=== PATIENT | male | born 1950 | race Caucasian/White ===

== ENCOUNTER 2016-06-20 10:32 | Outpatient (CLI) | payer OTHER ==
--- NOTE | 2016-06-21 17:20 | DIAGNOSTIC IMAGING REPORT ---
REFERRING PHYSICIAN/PROVIDER: CONSULTING 4 H YOU[employer] DEVELOPMENT SPECIALIST: Varinder Yeung MD INDICATION: DILATED AORTIC ROOT Procedure: A two-dimensional transthoracic echocardiogram with color flow and Doppler was performed. The study quality was technically adequate. The patient was in normal sinus rhythm during the exam. Left Ventricle: The left ventricle is normal in size. There is mild concentric left ventricular hypertrophy. There is no ventricular septal defect visualized. Left ventricular systolic function is normal without focal wall motion abnormalities. The ejection fraction is estimated to be 55-60%. Assessment of diastolic parameters indicates a relaxation abnormality of the left ventricle, consistent with normal filling pressures. Right Ventricle: The right ventricle is normal in size and function. Atria: The left atrial size is normal. The right atrium grossly appears normal in size. The interatrial septum is intact with no evidence for an atrial septal defect. Mitral Valve: The mitral valve leaflets appear borderline thickened, but open well. There is mild mitral regurgitation. Aortic Valve: The aortic valve is trileaflet. The aortic valve opens well. There is mild aortic regurgitation. Tricuspid Valve: The tricuspid valve leaflets are thin and pliable. There is a trace or physiologic amount of tricuspid regurgitation. Pulmonary artery pressures cannot be estimated because of the lack of a measurable TR jet velocity. Pulmonic Valve: The pulmonic valve is not well visualized. The pulmonic valve is not well seen, but is grossly normal. There is a trace or physiologic amount of pulmonic regurgitation. Great Vessels: The aortic root is mildly dilated. It measures around 4.3 cm. The ascending aorta is mildly enlarged. It measures around 3.7 cm. Pericardium/ Pleura The pericardium appears normal. IMPRESSION: There is mild concentric left ventricular hypertrophy. Left ventricular systolic function is normal without focal wall motion abnormalities. The ejection fraction is estimated to be 55-60%. Assessment of diastolic parameters indicates a relaxation abnormality of the left ventricle, consistent with normal filling pressures. The right ventricle is normal in size and function. Pulmonary artery pressures cannot be estimated because of the lack of a measurable TR jet velocity. The left atrial size is normal. There is mild mitral regurgitation. There is mild aortic regurgitation. The aortic root is mildly dilated. It measures around 4.3 cm. The ascending aorta is mildly enlarged. It measures around 3.7 cm.
== END 2016-06-20 23:00 ==
LOC: US SRH 10:32
DX: I34.0 Nonrheumatic mitral (valve) insufficiency (principal); I35.1 Nonrheumatic aortic (valve) insufficiency

== ENCOUNTER 2016-10-12 14:16 | Outpatient (CLI) | payer OTHER ==
--- NOTE | 2016-10-12 15:38 | DIAGNOSTIC IMAGING REPORT ---
PROCEDURE: US VENOUS - LEFT EXT INDICATION: PAIN IN LEFT CALF TECHNIQUE: Duplex sonography of the deep venous system in the left lower extremity was performed. Compression and augmentation techniques were used. COMPARISON: None. FINDINGS: Each interrogated segment of deep vein from the common femoral vein into the calf veins demonstrates normal compressibility, augmentation and/or color Doppler flow without filling defect. No evidence of significant soft-tissue edema, soft-tissue mass or cyst. Small patent varicosities in the superficial posterior calf were present. IMPRESSION: 1. No deep venous thrombosis in the left lower extremity. 2. Small, patent posterior calf varicosities. 3. Results called to Dr. Rangel wallace for Dr. Barillas
== END 2016-10-12 23:00 | disposition home or self-care (01) ==
LOC: US SRH 14:16
DX: M79.662 Pain in left lower leg (principal)